=== PATIENT | male | born 1970 | race Caucasian/White ===

== ENCOUNTER 2016-10-22 12:24 | Day surgery (SDC) | payer OTHER ==
[2016-10-16 15:27] LABS: BASOPHILS ABSOLUTE 0.06 10/3/uL (0.0-0.16); EOSINOPHILS 3.2 %; EOSINOPHILS ABSOLUTE 0.19 10/3/uL (0.0-0.53); HEMATOCRIT 47.6 % (40.0-51.0); IMMATURE GRANULOCYTES 0.7 %; IMMATURE GRANULOCYTES ABSOLUTE 0.04 10/3/uL (0.0-0.11); LYMPHOCYTES 31.1 %; LYMPHOCYTES ABSOLUTE 1.82 10/3/uL (0.67-4.30); MEAN CORPUS HGB CONC 33.6 g/dL (32.0-36.0); MEAN CORPUSCULAR HEMOGLOB 29.1 pg (26.0-34.0); MEAN CORPUSCULAR VOLUME 86.5 fL (80-100); MEAN PLATELET VOLUME 10.3 fL (9.2-13.0); MONOCYTES ABSOLUTE 0.29 10/3/uL (0.21-1.20); NEUTROPHILS ABSOLUTE 3.45 10/3/uL (2.02-8.40); PLATELET COUNT 254 10/3/uL (150-400); RBC DISTRIBUTION WIDTH 13.7 % (12.0-16.0); WHITE BLOOD CELLS 5.9 10/3/uL (4.5-10.5)
[2016-10-16 15:28] LABS: MANUAL DIFF NO %
[2016-10-16 15:43] LABS: BUN (BLOOD UREA NITROGEN) 16 MG/DL (6-23); CALCIUM, SERUM 8.9 MG/DL (8.5-10.4); CHLORIDE, SERUM 106 MMOL/L (96-112); CO2 (CARBON DIOXIDE) 27 MMOL/L (24-34); CREATININE 1.11 MG/DL (0.70-1.30); GFR AFRICAN AMERICAN 91 ML/MIN (>=60); GFR NON AFRICAN AMERICAN 79 ML/MIN (>=60); GLUCOSE, SERUM 119 MG/DL (60-99); POTASSIUM, SERUM 4.2 MMOL/L (3.5-5.3); SODIUM, SERUM 142 MMOL/L (135-148)
[2016-10-16 15:46] LABS: ASCORBIC ACID (UR NOT ORDER) NEG (NEG); BILIRUBIN, URINE NEGATIVE (NEG); KETONE, URINE NEGATIVE (NEG); LEUKOCYTE ESTERASE(NOT OR NEG (NEG); WBC (NOT ORDERED) (RFLEX) 1 (0-5)
--- NOTE | ~2016-10-22 | OP ---
Record Of Operation [facility] [address] [place]. [address] NAME: JODI VALERO IV : 68 STATUS : REG [facility] [place] PAT#: [id number] AGE: 46 ADM/REG DATE : 10/22/16 MR#: [id number] REPORT SERV DATE: 10/22/16 DICTATED BY: CARMELO DELACRUZ III DATE: 10/22/16 REPORT STATUS : Draft TRANSCRIBED BY: MODL DATE: 10/22/16 DATE OF PROCEDURE: 10/22/2016 PROCEDURE: Cystoscopy, dilatation of meatal stenosis. PREOPERATIVE DIAGNOSIS: Hypospadiac meatal stenosis. POSTOPERATIVE DIAGNOSIS: Hypospadiac meatal stenosis. ANESTHESIA: General. SURGEON: Carmelo Delacruz M.D. DESCRIPTION OF PROCEDURE: Following induction of adequate general anesthesia, the patient was placed in dorsal lithotomy position, prepped and draped in a sterile fashion. The meatus was identified. It was quite small. I initially tried to filiform and it would not pass. The ureteroscope was passed and stretched the opening up a bit. I used the smallest [place] sounds at that point to dilate with. I was able to dilate it up fairly easily to approximately a 24-Greek. A 20-Greek sheath then passed easily into the urethra. There were some inflammatory changes as would be expected. There were no tumors, no stones. The prostate was mildly occluding with an elevated bladder neck. There was a small amount of bleeding just distal to the bladder neck. This was attributed to the filiform. Bladder was entered. It was mildly trabeculated. There was mild erythema on the base. Orifices were intact. Bladder was inspected with 30 and 70-degree lenses. No tumors or stones were noted. A 16-Greek Coude passed easily into the bladder. He tolerated the procedure well. OB/MODL Carmelo Delacruz III, M.D. / [id number] CC: Carmelo Delacruz III, M.D.
[~2016-10-22 12:24] MED LIST: FISH-EPA1000 MG PO; LYRICA150 MG PO; PRILOSEC40 MG PO; PRIN20 PO; WELLSR100 PO; ZOL100 PO
== END 2016-10-22 17:13 | disposition home or self-care (01) ==
LOC: SDC 12:24
PROVIDERS: Urology
PROC: 0T7D8ZZ Dilation of Urethra, Via Natural or Artificial Opening Endoscopic (ICD-10-PCS; principal; 2016-10-22 13:45)
DX: N35.9 Urethral stricture, unspecified (principal); I10 Essential (primary) hypertension; G89.29 Other chronic pain; K21.9 Gastro-esophageal reflux disease without esophagitis; M19.90 Unspecified osteoarthritis, unspecified site; F41.9 Anxiety disorder, unspecified; Z88.8 Allergy status to other drugs, medicaments and biological substances; Z79.899 Other long term (current) drug therapy; Z90.49 Acquired absence of other specified parts of digestive tract; Z98.890 Other specified postprocedural states
CPT/HCPCS: 36415; 80048; 81001; 85025; 93005; A9270-GY; J2250; J2405; J3010